=== PATIENT | male | born 2000 | race Caucasian/White ===

== ENCOUNTER 2018-07-03 11:44 | Observation (INO) | payer OTHER ==
[~2018-07-03 11:44] MED LIST: DEXAMETHASONE SOD PHOSPHATE INJ 4 MG/1 ML VIAL ONE; FENTANYL CITRATE INJ/PF 100 MCG/2 ML AMPUL ONE; MIDAZOLAM 2 MG/2 ML INJ ONE; ONDANSETRON HCL INJ/PF 4 MG/2 ML SDV ONE; PROPOFOL INJ 200 MG/20 ML VIAL IV ONE
[2018-07-03] MEDS ORDERED: BUPIVACAINE HCL 0.5 % INJ/PF 30 ML SDV ONE (12:55)
[2018-07-03] MEDS ORDERED: ALBUTEROL SULFATE 0.083% NEB 2.5 MG/3 ML AMPUL NEB ONE (13:04)
[2018-07-03] MEDS ORDERED: CEFAZOLIN 2 GM/D5W RTU 2 GM/50 ML RTUPB IV ONE (13:04)
[2018-07-03] MEDS ORDERED: SUCCINYLCHOLINE CHLORIDE INJ 200 MG/10 ML VIAL ONE (13:50)
[2018-07-03] MEDS ORDERED: KETOROLAC TROMETHAMINE 60 MG/2 ML SDV ONE (13:50)
[2018-07-03] MEDS ORDERED: MEPERIDINE HCL/PF INJ 25 MG/1 ML DISP.SYRIN IV PRN (17:18)
[2018-07-03] MEDS ORDERED: PROMETHAZINE HCL INJ 25 MG/1 ML VIAL IV PRN ×2 (17:18)
[2018-07-03] MEDS ORDERED: FENTANYL CITRATE INJ/PF 100 MCG/2 ML AMPUL IV PRN ×4 (17:18→19:56)
[2018-07-03] MEDS ORDERED: ONDANSETRON HCL INJ/PF 4 MG/2 ML SDV IV PRN (17:18)
[2018-07-03] MEDS ORDERED: DIPHENHYDRAMINE HCL 50 MG/ML VIAL IV PRN ×2 (17:18→19:57)
[2018-07-03] MEDS ORDERED: MORPHINE SULFATE 10 MG/ML INJ IV PRN (17:18)
[2018-07-03] MEDS ORDERED: HYDROMORPHONE HCL INJ/PF 2 MG/ML AMPULE ONE (18:50)
[2018-07-03] MEDS ORDERED: LIDOCAINE 2%/EPINEPHRINE INJ 20 ML VIAL ONE ×2 (19:30→20:01)
[2018-07-03] MEDS ORDERED: ROPIVACAINE HCL 0.5% INJ/PF (5 MG/1 ML) 30 ML SDV ONE ×2 (19:31→20:01)
[2018-07-03] MEDS ORDERED: LIDOCAINE 2% INJ-PF (20 MG/ML) 10 ML AMPUL ONE ×2 (19:31→20:01)
[2018-07-03] MEDS ORDERED: DEXTROSE 40% GEL 15 GM TUBE PO PRN ×2 (19:54)
[2018-07-03] MEDS ORDERED: DEXTROSE 50%-WATER 25 GM/50 ML DISP.SYRIN IV PRN ×2 (19:54)
[2018-07-03] MEDS ORDERED: GLUCAGON,HUMAN RECOMB 1 MG INJ SUBCUT PRN (19:54)
[2018-07-03] MEDS ORDERED: HYDROCODONE/ACETAMINOPHEN 5-325 MG TABLET PO PRN (19:56)
[2018-07-03] MEDS ORDERED: ONDANSETRON HCL INJ/PF 4 MG/2 ML SDV ONE (19:56)
[2018-07-03] MEDS ORDERED: CEFAZOLIN INJ 1 GM VIAL ONE (20:07)
--- NOTE | 2018-07-03 20:33 | Operative Report ---
Operative Report DATE OF SURGERY: 07/03/18 PREOPERATIVE DIAGNOSIS: Right proximal radius fracture with radiocapitellar dis location, ulnohumeral dislocation POSTOPERATIVE DIAGNOSIS: Same plus tear of pronator teres OPERATION: 1. ORIF proximal radius right forearm. 2. Posterior interosseous decompression. 3. Annular ligament reconstruction right radiocapitellar dislocation. 4. Placement of internal fixator right ulnohumeral, repair of lateral collateral ligament SURGEON: DANIELA THURMAN ANESTHESIA: GA COMPLICATIONS: None ESTIMATED BLOOD LOSS: 200cc PROCEDURE: Indication for above procedure: 18-year-old male who sustained a fall approximately 3 feet while playing paint ball onto his right elbow. He was seen at the [facility] where radiocapitellar with concomitant ulnohumeral dislocation along with proximal radius fracture was diagnosed. Patient had his ulnohumeral dislocation reduced but is radiocapitellar dislocation was not reducible. At that point decision was made to send the patient for consultation. I discussed treatment options with the patient including operative versus nonoperative intervention. Specific risks of the surgical procedure have been explained to the patient he verbalized understanding consented for surgical procedure. Procedure In Detail: Patient was seen and evaluated in the preoperative holding area. The RIGHT upper extremity was initialized and marked. Patient received 2g of Ancef IV for bacterial prophylaxis. Patient was taken back to the operative room where transferred to the operative table and placed under general anesthesia. Once they were adequately anesthetized a nonsterile tourniquet was placed on the upper extremity. A surgical team debriefing was performed ensuring all instrumentation was available, the surgical procedure was discussed with possible concerns reviewed. The upper extremity was prepped with ChloraPrep and draped in a sterile fashion. A timeout was done identifying correct patient, procedure and extremity everyone in attendance agree with this and verbalized no concerns. The extremity was exsanguinated the tourniquet was inflated to 250 mmHg. Under live C-arm fluoroscopy attempted radiocapitellar relocation was unsuccessful. Continues to demonstrate persistent ulnohumeral dislocation as well. At that point decision was made to proceed with open treatment. Longitudinal skin incision was made in line with Adriano's tubercle and the lateral epicondyle. The interval between the ECRB and EDC was utilized. Small peripheral vein branches were isolated and coagulated with bipolar cautery. At this level there was significant evidence of disruption of the pronator teres and the distal aspect of the supinator. Dissection began approximately at approximately radial neck at this level the posterior interosseous nerve could be palpated with a nerve stimulator it was stimulated to ensure location. Once adequately located the posterior interosseous nerve was released from the supinator in order to maintain identification of the nerve throughout internal fixation. Vessel loop was placed around the posterior interosseous nerve. The pronator teres insertion was at the level of the fracture and thus fibers of its attachment were elevated to allow later repair. Subperiosteal dissection was performed to expose the fracture proximally and distally. Under direct visualization the fracture was then reduced. A 8 hole [place] 3.5 mm compression plate was then secured first obtaining fixation proximally. Once proximal fixation was successful the fracture was fixated distally first with bicortical compression screw which provided compression of the fracture. An additional compression screw was placed through the plate providing adequate fixation and compression. Fixation was then completed proximally with an additional bicortical screw and locking screw. Additional 2 screws were placed distally including an additional locking screw. At completion ORIF there was sikh of radial length and adequate compression. Tourniquet was then deflated. Any peripheral bleeding was controlled with bipolar cautery. Wound was copiously irrigated with normal saline. The nerve stimulator was once again utilized after 15 minutes to ensure intact posterior interosseous nerve under stimulation and this was confirmed. There is no evidence of nerve irritation adjacent to the plate. Pronator teres was then reapproximated back to its original insertion with interrupted 0 Vicryl suture. Attention then turned to the ulnohumeral joint. Extremity was once again exsanguinated and tourniquet inflated to 250 mmHg. The lateral condyle was exposed gently elevating a portion of the mobile wad to directly visualize the insertion point of the lateral ulnar collateral ligament. Inspection of the radial head demonstrated small defect along the lateral portion with the elbow and neutral pronation likely indicative of impaction injury. Under C-arm fluoroscopy there was persistent ulnohumeral instability along with radiocapitellar instability. Complete disruption of the lateral collateral ligament and annular ligament disruption was confirmed. Given the gross instability decision was made to proceed with placement of skeletal dynamics internal fixator. With the guide placed along the trochlea K wire was placed along the anatomic axis of rotation. Multiple views including AP lateral and oblique views were obtained confirming adequate placement. This was then drilled and the appropriate size plate placed into position. The Zettics placed plate was then placed along the lateral aspect of the ulna and secured. The device arm and mechanism was also secured into the central rotational axis. Elbow was placed through range of motion patient continued to have persistent instability with extension. After carefully evaluating placement of the baseplate decision was made to transition the ba seplate and a more posterior direction to provide further stability. Once the baseplate was removed and further secured posteriorly along the olecranon the device was once again reconstructed and secured into position while maintaining ulnohumeral relocation. Once adequately secured there was stability throughout range of motion and thus decision was made to proceed with lateral collateral ligament repair. A Arthrex bio suture tack anchor was then placed just proximal to the axis of rotation a running Krakw suture was placed from proximal to distal and distal to proximal within the lateral collateral ligament this was then secured providing further stability. Additional FiberWire suture was placed within the annular ligament to provide further stability of the radial head. The skeletal dynamics aiming arm was then once again secured into position. Elbow was placed through full range of motion there is no evidence of ulnohumeral or radiocapitellar subluxation. However under examination there was evidence of DRUJ instability which was controlled with neutral and maintained supination. Wound was copiously irrigated with normal saline. The previous extensor mechanism was then reapproximated with the remaining FiberWire suture. Fascia was closed with interrupted 0 Vicryl suture. Tourniquet was deflated. Peripheral bleeding was controlled with bipolar cautery. Wound was copiously irrigated with normal saline. Subcutaneous tissues were closed with 2-0 Vicryl suture. Skin was closed with jewel. 30 cc of 0.5% bupivacaine without epinephrine was injected for postoperative pain control. Wound was dressed with Xeroform 4 x 4's and soft roll. Patient was placed in a plaster splint maintaining elbow flexion approximately 60 degrees and full elbow supination. Sponge counts, instrument counts, needle counts were correct. Patient was then awoken from anesthesia. Transferred from the operating room table to the operating room stretcher. There was no intraoperative complications patient tolerated procedure well stable to PACU. Postop plan: Patient will follow-up in the office in 2 weeks at which point we will place him in a cast for an additional 2 weeks to maintain full supination after that point patient will begin short elbow range of motion 30 degrees-full flexion as tolerated. Anticipate removal of internal fixator 10-12 weeks postoperatively.
[2018-07-03] MEDS: CEFAZOLIN 2 GM/D5W RTU 2 GM/50 ML RTUPB IV SCH ×2 (21:35→23:19)
[2018-07-03] MEDS: KETOROLAC TROMETHAMINE INJ/PF 30 MG/1 ML SDV IV SCH (23:19)
[2018-07-04] MEDS ORDERED: ACETAMINOPHEN 1,000 MG/100 ML RTUPB IV ONE (01:57)
[2018-07-04] MEDS ORDERED: CEFAZOLIN 2 GM/D5W RTU 2 GM/50 ML RTUPB IV PRN (05:00)
[2018-07-04] MEDS: KETOROLAC TROMETHAMINE INJ/PF 30 MG/1 ML SDV IV SCH (05:20)
[2018-07-04] MEDS: CEFAZOLIN 2 GM/D5W RTU 2 GM/50 ML RTUPB IV SCH (05:21)
[2018-07-04 08:43] VITALS: BP 140/67
--- NOTE | 2018-07-04 08:45 | RADIOLOGY REPORT (SQ) ---
EXAM DESCRIPTION: NO CHG FLUORO; FOREARM RIGHT COMPLETED DATE/TIME: 07/03/2018 8:12 pm REASON FOR STUDY: ORIF RT FOREARM S52.121A DISP FX OF HEAD OF RIGHT RADIUS, INIT FOR CLOS FX COMPARISON: None. FLUOROSCOPY TIME: 4.9 minutes Greater than 15 images saved to PACS. TECHNIQUE: Intra-operative images acquired during surgical procedure to evaluate progress. NUMBER OF IMAGES: Greater than 15 LIMITATIONS: None. FINDINGS: Numerous images show extensive open reduction internal fixation of fractures, elbow and fo rearm. Side not labeled, reportedly the right. Please correlate with operative note. IMPRESSION: IMAGE(S) OBTAINED DURING PROCEDURE. COMMENT: Quality ID 145: Final reports for procedures using fluoroscopy that document radiation exp osure indices, or exposure time and number of fluorographic images (if radiation exposure indices are not available) Please consult full operative report of the attending physician for description of the procedure. TECHNICAL DOCUMENTATION: JOB ID: [id number] [employer]- All Rights Reserved Reading location - IP/workstation name: [email or web address]
--- NOTE | 2018-07-04 08:45 | RADIOLOGY REPORT (SQ) ---
EXAM DESCRIPTION: NO CHG FLUORO; FOREARM RIGHT COMPLETED DATE/TIME: 07/03/2018 8:12 pm REASON FOR STUDY: ORIF RT FOREARM S52.121A DISP FX OF HEAD OF RIGHT RADIUS, INIT FOR CLOS FX COMPARISON: None. FLUOROSCOPY TIME: 4.9 minutes Greater than 15 images saved to PACS. TECHNIQUE: Intra-operative images acquired during surgical procedure to evaluate progress. NUMBER OF IMAGES: Greater than 15 LIMITATIONS: None. FINDINGS: Numerous images show extensive open reduction internal fixation of fractures, elbow and fo rearm. Side not labeled, reportedly the right. Please correlate with operative note. IMPRESSION: IMAGE(S) OBTAINED DURING PROCEDURE. COMMENT: Quality ID 145: Final reports for procedures using fluoroscopy that document radiation exp osure indices, or exposure time and number of fluorographic images (if radiation exposure indices are not available) Please consult full operative report of the attending physician for description of the procedure. TECHNICAL DOCUMENTATION: JOB ID: [id number] [employer]- All Rights Reserved Reading location - IP/workstation name: [email or web address]
[2018-07-04] MEDS ORDERED: RIVAROXABAN 10 MG TABLET PO ONE (09:00)
[2018-07-04] MEDS ORDERED: CELECOXIB 200 MG CAPSULE PO SCH (10:00)
[2018-07-04] MEDS ORDERED: RIVAROXABAN 10 MG TABLET PO SCH ×2 (17:00)
== END 2018-07-04 11:26 | disposition home or self-care (01) ==
LOC: OROUT 11:44 → 2N 19:54 → 5 21:00 → 2N 21:45 → OROUT 07-04 11:50
PROVIDERS: ADMIT Orthopaedic Surgery; ATTEND Orthopaedic Surgery
PROC: 0MQ30ZZ Repair Right Elbow Bursa and Ligament, Open Approach (ICD-10-PCS; 2018-07-03)
PROC: 0PRH0JZ Replacement of Right Radius with Synthetic Substitute, Open Approach (ICD-10-PCS; principal; 2018-07-03 14:00)
DX: S52.181A Other fracture of upper end of right radius, initial encounter for closed fracture (principal); S53.194A Other dislocation of right ulnohumeral joint, initial encounter; S56.221A Laceration of other flexor muscle, fascia and tendon at forearm level, right arm, initial encounter; W13.4XXA Fall from, out of or through window, initial encounter; Y93.89 Activity, other specified
CPT/HCPCS: 24666; 24999; 73090; G0378 ×2; C1713 ×7; J2250; J3490; J0690 ×3; J1100; J1885 ×3; J3010; J1170; J0330; J2405; J2704; J0131; 01740; J2795

== ENCOUNTER 2018-11-13 08:34 | Day surgery (SDC) | payer OTHER ==
[2018-11-06 10:36] LABS: HEMOGLOBIN 14.5 g/dL (13.5-17.0); MEAN CORPUSCULAR HEMOGLOBIN 31.1 pg (27.0-33.4); MEAN CORPUSCULAR HGB CONC 35.4 g/dL (32.0-36.0); MEAN CORPUSCULAR VOLUME 88 fl (80-97); PLATELET COUNT 175 10^3/uL (150-450); RED BLOOD COUNT 4.67 10^6/uL (4.35-5.55); RED CELL DISTRIBUTION WIDTH 13.3 % (11.5-14.0)
[2018-11-06 10:58] LABS: ANION GAP 11 (5-19); BLOOD UREA NITROGEN 15 mg/dL (7-20); CALCIUM 9.7 mg/dL (8.4-10.2); CARBON DIOXIDE 28 mmol/L (22-30); CHLORIDE 100 mmol/L (98-107); GLUCOSE 71 mg/dL (75-110); POTASSIUM 4.3 mmol/L (3.6-5.0)
[~2018-11-13 08:34] MED LIST changes: +CEFAZOLIN SODIUM 2 GM in DEXTROSE 5%-WATER 100 ML IV PRN; -FENTANYL CITRATE INJ/PF 100 MCG/2 ML AMPUL ONE; +FENTANYL CITRATE INJ/PF 250 MCG/5 ML AMPULE ONE; +LIDOCAINE 0.5% INJ-PF (5 MG/ML) 50 ML SDV ONE
[2018-11-13] MEDS ORDERED: BUPIVACAINE HCL 0.5 % INJ/PF 30 ML SDV ONE (11:29)
[2018-11-13] MEDS ORDERED: MEPERIDINE HCL/PF INJ 25 MG/1 ML DISP.SYRIN IV PRN (11:57)
[2018-11-13] MEDS ORDERED: PROMETHAZINE HCL INJ 25 MG/1 ML VIAL IV PRN ×2 (11:57)
[2018-11-13] MEDS ORDERED: DIPHENHYDRAMINE HCL 50 MG/ML VIAL IV PRN (11:57)
[2018-11-13] MEDS ORDERED: MORPHINE SULFATE 10 MG/ML INJ IV PRN ×2 (11:57→12:44)
[2018-11-13] MEDS ORDERED: ONDANSETRON HCL INJ/PF 4 MG/2 ML SDV IV PRN ×2 (11:57→12:44)
[2018-11-13] MEDS ORDERED: FENTANYL CITRATE INJ/PF 100 MCG/2 ML AMPUL IV PRN ×3 (11:57)
[2018-11-13] MEDS ORDERED: OXYCODONE-ACETAMINOPHEN 5-325 MG TABLET PO PRN (12:44)
--- NOTE | 2018-11-13 12:44 | Discharge Summary ---
Discharge Summary (SDC) - Discharge Final Diagnosis: Elbow dislocation with proximal radial shaft fracture Date of Surgery: 11/13/18 Discharge Date: 11/13/18 Condition: Good Treatment or Instructions: Schedule Follow Up w/ Dr. Anival Bai @ [facility] for Surgery to be seen in 10-14 days or as scheduled [place]: [place]: [place]: May remove dressing on postop day #3, keep incision covered and dry. Ice and elevate May begin finger range of motion attempting to make full fist. Stool softener of choice when on pain medication. USE OF [id number] IBUPROFEN: Ibuprofen (Advil, Nuprin, Medipren, Motrin IB) is a medication for fever and pain control. In addition, it has anti- inflammatory effects which may be beneficial, especially in the treatment of injuries. It's best to take ibuprofen with food. Persons with ulcer disease or allergy to aspirin should notify their physician of this before taking ibuprofen. Ibuprofen can be given every four to six hours, for a total of four doses daily. Age Pain or fever dose Antiinflammatory dose 6-8 yr 200 mg (1 tab) 200 mg (1 tab) 9-11 yr 200 mg (1 tab) 200-400 mg (1-2 tab) 11-14 yr 200-400 mg (1-2 tab) 400 mg (2 tab) 15-adult 400 mg (2 tab) 600 mg (3 tab) ORAL NARCOTIC MEDICATION: You have been given a prescription for pain control. This medication is a narcotic. It's best taken with food, as nausea can result if taken on an empty stomach. Don't operate machinery or drive within six hours of taking this medication. Do not combine this medicine with alcohol, or with any medication which can cause sedation (such as cold tablets or sleeping pills) unless you get permission from the physician. Narcotics tend to cause constipation. If possible, drink plenty of fluids and eat a diet high in fiber and fruits. Please be aware that prescription narcotics also have the potential for abuse. People become addicted to these medications because of the general sense of wellbeing that they induce. This feeling along with a significant reduction in tension, anxiety, and aggression provides a stimulating seductive quality to these drugs. Once your pain is under control, we encourage you to discard your unused narcotics. Prescriptions: Oxycodone HCl/Acetaminophen [Percocet 5-325 mg Tablet] 1 tab PO Q6 PRN #25 tab PRN Reason: Discharge Diet: As Tolerated Respiratory Treatments at Home: Deep Breathing/Coughing, Incentive Spirometer Discharge Activity: Activity As Tolerated, No Lifting Over 10 Pounds, No Lifting/Push/Pulling Report the Following to Your Physician Immediately: Fever over 101 Degrees, Unusual Bleeding, Redness, Swelling, Warmth, Increased Soreness
--- NOTE | 2018-11-13 12:44 | Operative Report ---
Operative Report DATE OF SURGERY: 11/13/18 PREOPERATIVE DIAGNOSIS: Painful retained hardware right elbow status post ORIF proximal radius with placement of IJS POSTOPERATIVE DIAGNOSIS: Same OPERATION: Removal hardware right elbow with with contracture release SURGEON: DANIELA THURMAN ANESTHESIA: GA COMPLICATIONS: None ESTIMATED BLOOD LOSS: Minimal PROCEDURE: Indication for above procedure: 18-year-old male who sustained a proximal third radial shaft fracture with concomitant elbow dislocation. Subsequently underwent open reduction of fixa tion proximal radius with placement of internal fixator. Postop the patient begin occupational therapy and had been doing well. He achieved adequate range of motion with complete healing of the fracture. Given the longevity of the surgical treatment decision was made to proceed with operative intervention. Risks and benefits were explained patient verbalized understanding consented for surgical procedure. Procedure In Detail: Patient was seen and evaluated in the preoperative holding area. The RIGHT upper extremity was initialized and marked. Patient received 2g of Ancef IV for bacterial prophylaxis. Patient was taken back to the operative room where transferred to the operative table and placed under general anesthesia. Once they were adequately anesthetized a nonsterile tourniquet was placed on the upper extremity. A surgical team debriefing was performed ensuring all instrumentation was available, the surgical procedure was discussed with possible concerns reviewed. The upper extremity was prepped with chlorhexidine and alcohol and draped in a sterile fashion. A timeout was done identifying correct patient, procedure and extremity everyone in attendance agree with this and verbalized no concerns. The extremity was exsanguinated the tourniquet was inflated to 250 mmHg. A 2 cm incision was made utilizing patient's previous skin incision. Blunt dissection was performed. The [place] [address] pin for the IJS tendon was isolated and removed. A small incision was made within the tensor mechanism and a periosteal elevator was placed along the anterior surface of the humerus releasing the capsule capsule from the anterior cortex, at completion of this release patient had full passive extension. C-arm fluoroscopy was obtained confirming no evidence of residual subluxation or dislocation. Additional skin incision was made over the IJS baseplate along the olecranon. Fascia was incised to expose the plate. The 3 screws were then removed. IGS system was removed from the wound. Remaining screw holes were debrided with a curette. Any peripheral veins were coagulated with bipolar cautery. At completion once again range of motion and stability were confirmed. Wound was copiously irrigated with normal saline. The fracture at the proximal radius was identified there was not evidence of complete healing but no evidence of hardware loosening or malalignment. There is no evidence of crepitation with elbow range of motion. Deep soft tissues were closed with 0 Vicryl suture including portion of the extensor mechanism. Subcutaneous tissue closed interrupted 4-0 Monocryl suture. Skin was closed with horizontal mattress 3-0 nylon suture. 20 cc of 0.5% bupivacaine without epinephrine was injected for postoperative pain control. Wound was dressed with Xeroform 4 x 4's and a soft dressing. Sponge counts, instrument counts, needle counts were correct. Patient was then awoken from anesthesia. Transferred from the operating room table to the operating room stretcher. There was no intraoperative complications patient tolerated procedure well stable to PACU. Postop plan: Patient will follow in the office in 2 weeks for wound check. We will begin o ccupational therapy but no full weightbearing on the extremity until radiographic union of the radius fracture is confirmed.
[2018-11-13] MEDS ORDERED: OXYCODONE-ACETAMINOPHEN 5-325 MG TABLET ONE (13:32)
[2018-11-13] MEDS ORDERED: KETOROLAC TROMETHAMINE 60 MG/2 ML SDV ONE (13:57)
[2018-11-13 15:58] VITALS: BP 120/55
--- NOTE | 2018-11-13 16:45 | RADIOLOGY REPORT (SQ) ---
EXAM DESCRIPTION: ELBOW RIGHT AP/LAT; NO CHG FLUORO COMPLETED DATE/TIME: 11/13/2018 1:20 pm REASON FOR STUDY: HARDWARE REMOVAL RT ELBOW ASST WITH FLUORO IN OR S53.104A UNSP DISLOCATION OF RIG HT ULNOHUMERAL JOINT, INIT E COMPARISON: None. FLUOROSCOPY TIME: 0.2 minutes Spot images saved to PACS. TECHNIQUE: Intra-operative images acquired during surgical procedure to evaluate progress. NUMBER OF IMAGES: 4 LIMITATIONS: None. FINDINGS: Fluoroscopy was provided for intraoperative procedure. Please refer to the operative repo rt for further discussion. IMPRESSION: IMAGE(S) OBTAINED DURING PROCEDURE. COMMENT: Quality ID 145: Final reports for procedures using fluoroscopy that document radiation exp osure indices, or exposure time and number of fluorographic images (if radiation exposure indices are not available) Please consult full operative report of the attending physician for description of the procedure. TECHNICAL DOCUMENTATION: JOB ID: [id number] [employer]- All Rights Reserved Reading location - IP/workstation name: [email or web address]
--- NOTE | 2018-11-13 16:45 | RADIOLOGY REPORT (SQ) ---
EXAM DESCRIPTION: ELBOW RIGHT AP/LAT; NO CHG FLUORO COMPLETED DATE/TIME: 11/13/2018 1:20 pm REASON FOR STUDY: HARDWARE REMOVAL RT ELBOW ASST WITH FLUORO IN OR S53.104A UNSP DISLOCATION OF RIG HT ULNOHUMERAL JOINT, INIT E COMPARISON: None. FLUOROSCOPY TIME: 0.2 minutes Spot images saved to PACS. TECHNIQUE: Intra-operative images acquired during surgical procedure to evaluate progress. NUMBER OF IMAGES: 4 LIMITATIONS: None. FINDINGS: Fluoroscopy was provided for intraoperative procedure. Please refer to the operative repo rt for further discussion. IMPRESSION: IMAGE(S) OBTAINED DURING PROCEDURE. COMMENT: Quality ID 145: Final reports for procedures using fluoroscopy that document radiation exp osure indices, or exposure time and number of fluorographic images (if radiation exposure indices are not available) Please consult full operative report of the attending physician for description of the procedure. TECHNICAL DOCUMENTATION: JOB ID: [id number] [employer]- All Rights Reserved Reading location - IP/workstation name: [email or web address]
== END 2018-11-13 14:54 | disposition home or self-care (01) ==
LOC: OROUT 08:34
PROVIDERS: ATTEND Orthopaedic Surgery
DX: T84.84XA Pain due to internal orthopedic prosthetic devices, implants and grafts, initial encounter (principal); Y83.8 Other surgical procedures as the cause of abnormal reaction of the patient, or of later complication, without mention of misadventure at the time of the procedure; M25.521 Pain in right elbow; F17.210 Nicotine dependence, cigarettes, uncomplicated
CPT/HCPCS: 36415; 85027; 80048; 73070; 20680; 24006; J2250; J3490 ×2; J0690; J1100; J1885; J3010; J2405; J7060; J2704; 01740